=== PATIENT | female | born 1935 | race Caucasian/White ===

== ENCOUNTER 2016-11-25 10:08 | Emergency (ER) | payer OTHER, MEDICAID ==
[~2016-11-25] VITALS: Ht 165.1 cm; Wt 83.5 kg
[~2016-11-25 10:08] MED LIST: NAPR1SUS2
[2016-11-25 10:39] VITALS: BP 135/74
[2016-11-25 11:48] LABS: Basophils # (auto) 0 uL; Basophils % (auto) 0.2 % (0.0-2.0); CONDITION Y; Eosinophils # (auto) 0 uL; Eosinophils % (auto) 0.6 % (0.0-7.0); Hematocrit 43.2 % (36.0-46.0); Hemoglobin 14.6 g/dL (12.2-16.2); Lymphocytes # (auto) 2.1 uL; Lymphocytes % (auto) 24.4 % (10.0-50.0); Mean Corpuscular Hemoglobin 30.3 pg (28.0-32.0); Mean Corpuscular Hgb Conc. 33.8 g/dL (32.0-36.0); Mean Corpuscular Volume 89.8 fL (80.0-100.0); Mean Platelet Volume 10.4 fL (7.4-10.4); Monocytes # (auto) 0.6 uL; Monocytes % (auto) 7.1 % (0.0-12.0); Neutrophils # (auto) 5.7 uL; Neutrophils % (auto) 67.7 % (37.0-80.0); Platelet Count (auto) 213 10^3/uL (140-450); Red Cell Distribution Width 12.9 % (11.6-16.0); White Blood Cell 8.4 10^3/uL (4.4-10.8)
[2016-11-25] MEDS ORDERED: SODIUM CHLORIDE 0.9% 500 ML IV ONE (11:59)
[2016-11-25 12:02] LABS: Urine Bilirubin Negative (Negative); Urine Blood Negative /uL (Negative); Urine Color Yellow (Yellow); Urine Glucose Normal (Normal); Urine Ketone Negative (Negative); Urine Nitrite Negative (Negative); Urine RBC <1 /hpf (0 - 4); Urine Squamous Epithelial Cell FEW /hpf (<5); Urine Urobilinogen Normal (Negative); Urine pH 7.5 (5.0-8.0)
[2016-11-25 12:06] LABS: Albumin 3.6 g/dL (3.4-5.0); Alkaline Phosphatase 73 U/L (45-117); Anion Gap 10 (5-15); Aspartate Aminotransferase 27 U/L (15-37); Bilirubin, Total 0.2 mg/dL (0.2-1.0); Blood Urea Nitrogen 12 mg/dL (7-18); Calcium 8.9 mg/dL (8.5-10.1); Carbon Dioxide 29 mmol/L (21-32); Chloride 103 mmol/L (98-107); GFR African American 116 mL/min; GFR Non-African American 96 mL/min; Glucose 91 mg/dL (74-106); Magnesium 2.4 mg/dL (1.6-2.6); Potassium 3.7 mmol/L (3.5-5.1); Sodium 142 mmol/L (136-145); Total Protein 6.8 g/dL (6.4-8.2)
== END 2016-11-25 12:38 | disposition home or self-care (01) ==
LOC: ER 10:09
DX: R53.1 Weakness (principal); R20.8 Other disturbances of skin sensation; R10.32 Left lower quadrant pain; I10 Essential (primary) hypertension
CPT/HCPCS: 36415; 71020; 80053; 81001; 83735; 84484; 85025; 93005; 94761; 99285; J7040

== ENCOUNTER 2017-05-13 16:29 | Emergency (ER) | payer OTHER, MEDICAID ==
[~2017-05-13] VITALS: Ht 152.4 cm; Wt 83.2 kg
[~2017-05-13 16:29] MED LIST changes: -NAPR1SUS2; +[UNRECOGNIZED DRUG - CODE]
[2017-05-13 17:02] VITALS: BP 131/59
[2017-05-13] MEDS ORDERED: IBUPROFEN 600 MG TAB PO ONE (20:45)
== END 2017-05-13 21:10 | disposition home or self-care (01) ==
LOC: ER 16:29
DX: S80.02XA Contusion of left knee, initial encounter (principal); I10 Essential (primary) hypertension; W19.XXXA Unspecified fall, initial encounter; Y93.89 Activity, other specified; Y92.89 Other specified places as the place of occurrence of the external cause; Y99.8 Other external cause status
CPT/HCPCS: 73562